=== PATIENT | male | born 1975 | race Hispanic/Latino ===

== ENCOUNTER 2024-09-08 01:59 | Emergency (ER) | payer BC ==
[~2024-09-08] VITALS: Ht 190.5 cm; Wt 108.9 kg
--- NOTE | 2024-09-08 02:07 | NUR ---
[facility] COLLECTED AND SENT
[2024-09-08 02:32] LABS: BASOPHILS # (AUTO) 0.01 K/uL (0.00-0.20); BASOPHILS % (AUTO) 0.1 % (0.0-5.0); HEMATOCRIT 45.6 % (42-54); IMMATURE GRANULOCYTE ABSOLUTE 0.04 K/uL (0-1); LYMPHOCYTES # (AUTO) 0.2 K/uL (1.0-4.8); LYMPHOCYTES % (AUTO) 2.8 % (21.0-51.0); MEAN CORPUSCULAR HEMOGLOBIN 30.6 pg (27.0-33.0); MEAN CORPUSCULAR HGB CONC 32.9 g/dL (32.0-36.0); MEAN CORPUSCULAR VOLUME 93.1 fL (79-99); MONOCYTES # (AUTO) 0.1 K/uL (0.1-1.0); MONOCYTES % (AUTO) 0.8 % (3.0-13.0); NEUTROPHILS # (AUTO) 7.3 K/uL (1.8-7.7); NEUTROPHILS % (AUTO) 95.8 % (40.0-77.0); PLATELET COUNT (AUTO) 165 K/uL (130-400); RED CELL DISTRIBUTION WIDTH 14.4 % (11.0-15.5); WHITE BLOOD COUNT (AUTO) 7.6 K/uL (4.8-10.8)
[2024-09-08 02:35] LABS: APPEARANCE,URINE TURBID (CLEAR); BILIRUBIN,URINE NEGATIVE (NEGATIVE); COLOR,URINE LIGHT-ORANGE (YELLOW); GLUCOSE, URINE (UA) NEGATIVE (NEGATIVE); KETONES,URINE NEGATIVE (NEGATIVE); LEUKOCYTE ESTERASE ,URINE 75 Leu/uL (NEGATIVE); NITRATE,URINE NEGATIVE (NEGATIVE); OCCULT BLOOD,URINE LARGE (NEGATIVE); PH,URINE 8.5 (5.0-8.0); PROTEIN,URINE 50 mg/dL (NEGATIVE); UROBILINOGEN,URINE 0.2 mg/dL (0.2-1.0)
[2024-09-08 02:37] LABS: ADD UA MICROSCOPIC YES
[2024-09-08 02:40] LABS: MUCUS,URINE RARE LPF (None Seen); RBC,URINE TNTC /HPF (0-1); SQUAMOUS EPITHELIAL CELL,UR RARE /HPF (0-2)
[2024-09-08 02:46] LABS: SARS-CoV-2, RNA, NAAT NEGATIVE SARS CoV-2 (NEGATIVE)
[2024-09-08 02:47] LABS: CARBON DIOXIDE 35 mmol/L (21-32); CHLORIDE 103 mmol/L (101-111); CREATININE 1.3 mg/dL (0.5-1.3); GLOMERULAR FILTR. RATE CALC 67 mL/min (>90); GLUCOSE,RANDOM 91 mg/dL (70-105); SODIUM SERUM 142 mmol/L (136-145); UREA NITROGEN, BLOOD 22 mg/dL (7-18)
[2024-09-08] MEDS: 0.9%NACL 1000ML 1,000 ML IV ONE (02:47)
[2024-09-08 02:51] LABS: ALANINE AMINOTRANSFERASE 20 U/L (12-78); ALBUMIN 3.7 g/dL (3.5-5.0); ASPARTATE AMINOTRANSFERASE 17 U/L (10-37); BILIRUBIN,DIRECT < 0.1 mg/dL (0.0-0.3); BILIRUBIN,TOTAL 0.3 mg/dL (0.2-1.0); CREATINE KINASE, TOTAL 212 U/L (21-232); TOTAL PROTEIN, SERUM 7.6 g/dL (6.0-8.3)
[2024-09-08 02:52] LABS: INFLUENZA TYPE A Negative For Type A (NEGATIVE); INFLUENZA TYPE B Negative For Type B (NEGATIVE)
[2024-09-08] MEDS ORDERED: TAMS-1 PO (02:52)
[2024-09-08] MEDS ORDERED: MULT-1367 PO (02:52)
--- NOTE | 2024-09-08 03:02 | ERN ---
ED Note History of Present Illness Stated Complaint: FEVER, CHILLS, DARK URINE, ABD, POST BIOPSY Chief Complaint: Multiple Complaints Time Seen by MD: 02:16 Dictation: This is a 49-year-old male came into the ER complaining of fever chills rigors and dark urine. Apparently all this started post prostate biopsy yesterday by Dr. Fisher for BPH. His temperatures were up to 103 and he reported dysuria hematuria dark urine and he took Motrin at 11:15 p.m. prior to coming to the ER. Temperature 100.7 pulse 105 respirations 20 blood pressure 103/67 with a pulse oximetry of 97% on room Allergies: Coded Allergies: No Known Allergies (Unverified Allergy, Unknown, 09/08/24) Home Meds Reported Medications Multivitamin (Multivitamin) 1 Each Tablet, 1 TAB PO DAILY for 30 Days, #30 TAB 0 Refills 09/08/24 Tamsulosin HCl (Flomax) 0.4 Mg Cap.er.24h, 1 CAP PO DAILY for 30 Days, #30 CAP 0 Refills 09/08/24 Past Medical History Past Medical History: Other Additional Past Medical Hx: BPH Surgical History: Other Surgical History Other: PROSTATE BIOPSY Family History: Negative Social History: Negative RN Note Reviewed/Agreed w/PFSH: Yes Review of System Dictation Constitutional: Negative for fever,chills, and weight loss Eyes: Negative for injury, pain,redness, and discharge ENT: Negative for injury,pain or swelling Cardiovascular: Negative for chest pain, palpitations, and edema Respiratory: Negative for shortness of breath, cough, and wheezing, Abdomen/GI: Negative for abdominal pain, nausea, vomiting, diarrhea, and constipation Back: Negative for injury and pain : Negative for injury, bleeding and discharge MS/Extremity: Negative for injury and deformity Skin: Negative for rash, and discoloration Neuro: Negative for headache, weakness, numbness, tingling, and seizure Psych: Negative for suicide ideation, homicidal ideation, and hallucinations Initial Vital Sign VS Vital Signs Date Time Temp Pulse Resp B/P (MAP) Pulse Ox O2 Delivery O2 Flow Rate FiO2 09/08/24 02:01 100.8 105 20 103/67 97 Room Air 09/08/24 02:47 0 21 Physical Exam Dictation General: awake, alert, NAD Head/Face: Normocephalic, atraumatic Eyes: PERRL, EOMI, vision at baseline ENT: oral cavity clear, TMs clear, no signs of infection Neck: Trachea midline, supple, no nuchal rigidity Cardiovascular: RRR, normal S1/S2, No MRGs, no JVD Respiratory: CTAB, no respiratory distress, No rales or wheezes Abdomen: Soft, non-tender, non-distended, normal bowel sounds, no guarding or rebound. Skin: Warm, dry, normal turgor, no rash MS/Extremity: Pulses equal, no cyanosis, neurovascular intact, FROM Neuro: COAx4, GCS 15, strength 5/5, CN 2-12 intact, normal cerebellar exam, normal gait, Psych: Normal behavior, mood, and affect normal Extremities-trace edema without any palpable cords, Homans sign is negative Results (Laboratory/Radiology) Laboratory/Radiology Laboratory Tests Test 09/08/24 02:07 09/08/24 02:09 09/08/24 02:16 Influenza Type A Antigen Negative For Type A Influenza Type B Antigen Negative For Type B SARS-CoV-2, RNA, NAAT NEGATIVE SARS CoV-2 White Blood Count 7.6 K/uL (4.8-10.8) Red Blood Count 4.90 MIL/uL (4.50-6.20) Hemoglobin 15.0 g/dL (14.0-18.0) Hematocrit 45.6 % (42-54) Mean Corpuscular Volume 93.1 fL (79-99) Mean Corpuscular Hemoglobin 30.6 pg (27.0-33.0) Mean Corpuscular Hemoglobin Concent 32.9 g/dL (32.0-36.0) Red Cell Distribution Width 14.4 % (11.0-15.5) Platelet Count 165 K/uL (130-400) Mean Platelet Volume 10.1 fL (7.5-10.5) Immature Granulocyte % (Auto) 0.5 % (0-1) Neutrophils (%) (Auto) 95.8 % (40.0-77.0) H Lymphocytes (%) (Auto) 2.8 % (21.0-51.0) L Monocytes (%) (Auto) 0.8 % (3.0-13.0) L Eosinophils (%) (Auto) 0.0 % (0.0-8.0) Basophils (%) (Auto) 0.1 % (0.0-5.0) Neutrophils # (Auto) 7.3 K/uL (1.8-7.7) Lymphocytes # (Auto) 0.2 K/uL (1.0-4.8) L Monocytes # (Auto) 0.1 K/uL (0.1-1.0) Eosinophils # (Auto) 0.00 K/uL (0.00-0.70) Basophils # (Auto) 0.01 K/uL (0.00-0.20) Absolute Immature Granulocyte (auto 0.04 K/uL (0-1) Nucleated Red Blood Cells 0.0 % (0.0-0.19) White Cell Morphology Comment CONSISTENT W/DIFF Sodium Level 142 mmol/L (136-145) Potassium Level 4.0 mmol/L (3.5-5.1) Chloride Level 103 mmol/L (101-111) Carbon Dioxide Level 35 mmol/L (21-32) H Blood Urea Nitrogen 22 mg/dL (7-18) H Creatinine 1.3 mg/dL (0.5-1.3) Glomerular Filtration Rate Calc 67 mL/min (>90) Random Glucose 91 mg/dL (70-105) Lactic Acid Level 1.9 mmol/L (0.8-2.5) Total Calcium 9.1 mg/dL (8.5-10.1) Total Bilirubin 0.3 mg/dL (0.2-1.0) Direct Bilirubin < 0.1 mg/dL (0.0-0.3) Aspartate Amino Transf (AST/SGOT) 17 U/L (10-37) Alanine Aminotransferase (ALT/SGPT) 20 U/L (12-78) Alkaline Phosphatase 82 U/L (50-136) Total Creatine Kinase 212 U/L (21-232) Total Protein 7.6 g/dL (6.0-8.3) Albumin 3.7 g/dL (3.5-5.0) Lipase 26 U/L (16-77) Urine Color LIGHT-ORANGE (YELLOW) Urine Appearance TURBID (CLEAR) Urine pH 8.5 (5.0-8.0) H Urine Specific Victoria 1.026 (1.001-1.031) Urine Protein 50 mg/dL (NEGATIVE) H Urine Glucose (UA) NEGATIVE mg/dL (NEGATIVE) Urine Ketones NEGATIVE mg/dL (NEGATIVE) Urine Occult Blood LARGE (NEGATIVE) H Urine Nitrate NEGATIVE (NEGATIVE) Urine Bilirubin NEGATIVE mg/dL (NEGATIVE) Urine Urobilinogen 0.2 mg/dL (0.2-1.0) Urine Leukocyte Esterase 75 Ritesh/uL (NEGATIVE) H Urine RBC TNTC /HPF (0-1) H Urine WBC 11-25 /HPF (0-1) H Urine Squamous Epithelial Cells RARE /HPF (0-2) Urine Bacteria None /HPF (None Seen) Labs Reviewed?: Yes ED Course ED Course Orders Procedure Category Date Status Time Cbc With Differential LAB 09/08/24 Complete 02:04 Lipase LAB 09/08/24 Complete 02:04 Creatine Kinase, Total LAB 09/08/24 Complete 02:04 Urinalysis Profile LAB 09/08/24 Complete 02:04 Influenza Type A & B, LAB 09/08/24 Complete Rapid 02:04 Covid Rna Naat LAB 09/08/24 Complete 02:04 Hepatic Function Panel LAB 09/08/24 Complete 02:04 Lactic Acid LAB 09/08/24 Complete 02:06 Blood Cult CANDACE 09/08/24 In Process 02:06 0.9%Nacl 1000ml (Ns PHA 09/08/24 Complete 1000ml) 02:30 Ct Abdomen/Pelvis CT 09/08/24 Taken W/Contrast 02:21 Basic Metabolic Panel LAB 09/08/24 Complete 02:09 Culture Urine CANDACE 09/08/24 In Process 02:38 Ceftriaxone 1g Vial PHA 09/08/24 Complete (Rocephine 1g Inj) 03:30 Iohexol (Omnipaque) PHA 09/08/24 Complete 03:22 Current Medications Medications (Trade) Dose Ordered Sig/Brenda Route PRN Reason Start Time Stop Time Status Last Admin Dose Admin Ceftriaxone Sodium (ROCEphine 1G INJ) 1 gm ONCE ONCE IVPB 09/08/24 03:30 09/08/24 03:31 DC 09/08/24 03:18 Iohexol (Omnipaque) 35,000 mg STK-MED ONCE IV 09/08/24 03:22 09/08/24 03:23 DC Sodium Chloride 1,000 ml @ 0 mls/hr ONCE ONCE IV 09/08/24 02:30 09/08/24 02:31 DC 09/08/24 02:47 Vital Signs Date Time Temp Pulse Resp B/P (MAP) Pulse Ox O2 Delivery O2 Flow Rate FiO2 09/08/24 03:46 99.3 62 18 105/50 97 Room Air* 0 21 09/08/24 02:47 98 18 99/63 96 Room Air* 0 21 09/08/24 02:01 100.8 105 20 103/67 97 Room Air We will perform diagnostic labs, advanced imaging and administer medications according to the patient's complaint. Once the results are available, will review and personally interpreted the labs to rule out any acute life- threatening emergency the trach require immediate intervention and treatment. I will then re-evaluate the patient after treatment and diagnostic exams have return to determine whether the patient requires any further testing, can safely be discharged home or need further admission to hospital for additional treatment and evaluation. I reviewed labs CBC is within normal limits BNP 7 shows a BUN and creatinine of 22 and 1.3 with a bicarb of 35 glucose 91 lactate is 1.9 serologies negative for any viral infections urinalysis showed leuko esterase positivity to numerous to count RBCs and 11-25 WBCs suggestive of a complicated UTI. I have recommended admission to the hospital due to sepsis and complicated UTI in the setting of known history of BPH. Patient stated that he felt so much better that he would like to be discharged to home on outpatient antibiotic therapy I instructed him to follow up with his urologist Dr. Fisher or return to the ER should he have any additional symptoms. Medical Decision Making MDM MDM: Differential diagnosis: Postprocedure fever, urinary tract infection, postop hematuria, viral syndrome Rationale: Tests considered and ordered secondary to shared decision making include: Previous outside records reviewed: Old ER visits. Risk of complication and/or morbidity or mortality of patient management: None Medications-Per medication reconciliation Need for hospitalization: Patient does not meet criteria for hospitalization. Need for emergency major/minor surgery: No There are no social concerns with this patient. Prescription drug management Prescriptions will include symptomatic care Patient's prior external medical records from other ER visits were reviewed by me as indicated. Prior testing and results from previous visits were reviewed. Prior tests were taken into account with medical decision making and resource utilization, independent historian/historians were used to obtain complete medical history. I independently interpreted the test that were performed, results were reviewed by me and considered findings on radiology if ordered. Medical management and examination interpretation discussions were had by me with other qualified healthcare professionals as indicated for the patient's care. Problem List Problem List: (1) Complicated UTI (urinary tract infection) (2) Acute kidney injury (3) BPH (benign prostatic hyperplasia) (4) Metabolic alkalosis DX & DISP Disposition: Discharge Departure Impression: Primary Impression: Complicated UTI (urinary tract infection) Additional Impressions: BPH (benign prostatic hyperplasia), H/O prostate biopsy, Acute kidney injury, Metabolic alkalosis Condition: Stable Scripts Levofloxacin (Levofloxacin) 750 Mg Tablet 750 MG PO DAILY for 10 Days, #10 TAB Prov: ELIZABETH MOONEY MD 09/08/24 Additional Instructions: Patient and the caregiver have been informed of all the diagnostic tests and the imaging conducted during the today's visit to the emergency room and has verbalized understanding of the results I have personally reviewed and interpreted all diagnostic exams performed here in the ER today as well as the vital signs documented by the nursing staff. The patient is now being discharged to home and should follow up with the primary care physician or the specialist as directed by the ER staff. Follow-up with primary care provider in 1 to 2 days. Take medications as directed here in the emergency room. Okay to continue home medications unless otherwise discussed during your visit in the emergency room today. Return to your nearest emergency room if symptoms worsen or if there is no improvement. Call 911 if you need immediate assistance. Take Tylenol or Motrin ove [id number] as needed and if no contraindications are present. Increase oral hydration. A wound culture or urine culture was ordered here in the emergency room department please follow-up with primary care provider and advise them to get repeat ports from our facility. If you had any Dawson wrap/splints that were applied here, please do not remove them until you see your primary care or specialty. Extensive counseling done on lifestyle, diet exercise and also to pursue polysomnography as patient has a history of snoring ELIZABETH MOONEY MD Sep 08, 2024 03:02
[2024-09-08] MEDS: cefTRIAXone 1G VIAL IVPB ONE (03:18)
[2024-09-08] MEDS ORDERED: IOHEXOL 350 MG/ML 100ML INFUS..BTL IV ONE (03:22)
[2024-09-08 03:59] LABS: WBC MORPHOLOGY CONSISTENT W/DIFF
[2024-09-08 05:22] VITALS: BP 102/51; PULSE 78; RESP 18; TEMP 98.6; O2SAT 97
[2024-09-08] MEDS ORDERED: LEVO750T40 PO (05:32)
--- NOTE | 2024-09-08 08:14 | HMCIMG ---
CT ABDOMEN/PELVIS W/CONTRAST REASON: prostate biopsy/fever/ COMPARISON: None. FINDINGS: Lung bases are clear. There are no focal liver lesions. There are normal-appearing kidneys.. Spleen and pancreas appear unremarkable. The gallbladder appears normal as well. There is mild sigmoid diverticulosis without evidence of diverticulitis. Bowel loops appear otherwise unremarkable. This includes normal appearance of the appendix There is no evidence of free fluid or intraperitoneal air. There are no focal fluid collections. Aorta and retroperitoneum appear normal. There is no retroperitoneal or pelvic lymphadenopathy. The prostate is enlarged at 5.0 x 7.6 x 6.3 cm. Urinary bladder is nondistended, urinary bladder does appear mildly thick-walled. The anterior abdominal wall is intact. Osseous structures appear unremarkable. IMPRESSION: 1. Mild sigmoid diverticulosis without evidence of diverticulitis. 2. Enlarged prostate. 3. Mildly thick-walled urinary bladder. 4. No acute finding. CT was performed with one or more following dose reduction techniques: automated exposure control, adjustment of the mA and kv according to patient's size, or use of a iterative reconstruction technique.
--- NOTE | 2024-09-12 10:36 | NUR ---
UPON REVIEW OF CULTURE RESULTS BY DR. MACKAY, NO FURTHER TX NEEDED.
== END 2024-09-08 05:56 | disposition home or self-care (01) ==
LOC: EDH 01:59
DX: N39.0 Urinary tract infection, site not specified (principal); N40.0 Benign prostatic hyperplasia without lower urinary tract symptoms; K57.30 Diverticulosis of large intestine without perforation or abscess without bleeding; N17.9 Acute kidney failure, unspecified; E87.3 Alkalosis; Z20.822 Contact with and (suspected) exposure to COVID-19; Z79.899 Other long term (current) drug therapy
CPT/HCPCS: 99284; 74177; 96374; 87635; 82550; 80076; 80048; 83690; 85025; 87040 ×2; 87086 ×2; 87186; 87804 ×2; 83605; 81001; 36415; J7030; J0696; Q9967